=== PATIENT | female | born 1985 | race Caucasian/White ===

== ENCOUNTER 2017-11-27 08:20 | Emergency (ER) | payer MEDICAID | END 2017-11-27 10:13 | disposition home or self-care (01) | LOC: FTE 08:20 | DX: S93.402A Sprain of unspecified ligament of left ankle, initial encounter (principal); W01.0XXA Fall on same level from slipping, tripping and stumbling without subsequent striking against object, initial encounter; Y92.9 Unspecified place or not applicable | CPT/HCPCS: 73080; 73080-LT; 73610; 73630-LT; 99284-25 ==

== ENCOUNTER 2019-02-14 16:49 | Emergency (ER) | payer OTHER, MEDICAID | END 2019-02-14 18:01 | disposition home or self-care (01) | LOC: FTE 16:49 | DX: R07.9 Chest pain, unspecified (principal); R20.2 Paresthesia of skin; R03.0 Elevated blood-pressure reading, without diagnosis of hypertension; F43.9 Reaction to severe stress, unspecified; E66.9 Obesity, unspecified; Z68.35 Body mass index [BMI] 35.0-35.9, adult | CPT/HCPCS: 99282; Z7502 ==